=== PATIENT | female | born 1960 | race Two or more races ===

== ENCOUNTER 2024-08-02 09:08 | Inpatient (IN) | payer OTHER ==
[~2024-08-02] VITALS: Ht 152.4 cm; Wt 53.1 kg
[~2024-08-02 09:08] MED LIST: ACID REDUCER20 M1 PO; BIOTIN1 M1 PO; GABAPENTIN100 MG; NOXIFOL-D32500 UNIT PO; ORAPRED ODT15 MG PO; SYNTHROID75 MCG PO; TOPROL XL50 M1 PO; ZOLPIDEM TARTRA10 MG PO
[2024-08-02 09:14] LABS: HEMATOCRIT 27.1 % (36.0-45.00); MEAN CELL VOLUME 90.4 fL (80.00-100.00); MEAN CORPUSCULAR HEMOGLOBIN 29.6 pg (27.00-32.0); MEAN CORPUSCULAR HGB CONC 32.7 g/dl (32.0-36.0); RED CELL DISTRIBUTION WIDTH 15.4 % (11.5-14.5)
[2024-08-02 09:16] LABS: HEMOGLOBIN 8.9 g/dL (12.0-15.00); PLATELET COUNT 76 K/uL (150-450)
[2024-08-02 09:23] LABS: INR 1.12; PARTIAL THROMBOPLASTIN TIME 27.9 SECONDS (22.0-34.0); PROTHROMBIN TIME 12.1 SECONDS (9.0-11.5)
[2024-08-02 09:44] LABS: URINE APPEARANCE Clear; URINE BILIRRUBIN Negative (NEGATIVE); URINE BLOOD Negative; URINE COLOR Yellow; URINE GLUCOSE Negative (NEGATIVE); URINE KETONE Negative (NEGATIVE); URINE LEUKOCYTE Negative; URINE NITRATE Negative; URINE PROTEIN Negative (NEGATIVE)
[2024-08-02 09:48] LABS: URINE BACTERIA 36.6 uL (0.0-1933); URINE WBC 2.2 uL (0.0-23.2)
[2024-08-02 09:59] LABS: URINE RBC 0.1 uL (0.0-20.8)
[2024-08-02 10:15] LABS: BILIRUBIN TOTAL 0.83 mg/dL (0.3-1.2); CALCIUM 8.7 mg/dL (8.5-10.1); CREATININE SERUM 0.72 mg/dL (0.55-1.02); GFR 82.35; GLOBULINA 5.1 G/DL (2.4-3.5); POTASSIUM 4.03 mEq/L (3.5-5.1); TOTAL PROTEIN 8.1 gm/dL (6.4-8.2)
[2024-08-07] MEDS ORDERED: 0.9 % SODIUM CHLORIDE 1,000 ML IV SCH (10:45)
[2024-08-07] MEDS ORDERED: ENALAPRILAT DIHYDRATE 1.25 MG/ML VIAL IV PRN (10:45)
[2024-08-07] MEDS ORDERED: FUROsemide 20 MG/2 ML VIAL IV SCH (10:45)
[2024-08-07] MEDS ORDERED: PREDNISONE 10 MG TABLET PO SCH (11:40)
[2024-08-07] MEDS ORDERED: GABAPENTIN 100 MG CAPSULE PO SCH (11:42)
[2024-08-07] MEDS ORDERED: METOPROLOL SUCCINATE 50 MG TAB.SR.24H PO SCH (11:45)
[2024-08-07] MEDS ORDERED: PANTOPRAZOLE SODIUM 40 MG/VIAL VIAL IV SCH (11:46)
[2024-08-07 13:00] VITALS: BP 170/90; O2SAT 100
[2024-08-07 14:39] LABS: COL ADP 90 SECONDS (56-102); COL EPI 94 SECONDS (82-175)
[2024-08-07] MEDS ORDERED: ZOLPIDEM TARTRATE 10 MG TABLET PO SCH (21:00)
[2024-08-07] MEDS ORDERED: GABAPENTIN 300 MG CAPSULE PO SCH (21:00)
[2024-08-08 00:45] VITALS: BP 145/80; O2SAT 100
[2024-08-08 05:30] VITALS: BP 171/82; O2SAT 100
[2024-08-08] MEDS ORDERED: LEVOTHYROXINE SODIUM 75 MCG TABLET PO SCH (06:00)
[2024-08-08] MEDS ORDERED: LABETALOL HCL 20MG/4ML SYRINGE IV STA (06:14)
[2024-08-08] MEDS ORDERED: AMLODIPINE BESYLATE 5 MG TABLET PO SCH (06:15)
[2024-08-08] MEDS ORDERED: LABETALOL HCL 100 MG/20 ML ML ONE (06:15)
[2024-08-08 07:29] LABS: INR 1.23; PARTIAL THROMBOPLASTIN TIME 29.3 SECONDS (22.0-34.0); PROTHROMBIN TIME 13.2 SECONDS (9.0-11.5)
[2024-08-08 08:00] VITALS: BP 148/68; O2SAT 97
[2024-08-08] MEDS ORDERED: POLYETHYLENE GLYCOL 3350 238 GM POWDER PO NR (14:00)
[2024-08-08 16:00] VITALS: BP 160/82; O2SAT 96
[2024-08-08] MEDS ORDERED: BISACODYL 5 MG TABLET.EC PO SCH (21:00)
[2024-08-09] VITALS: BP 156/75; O2SAT 98
[2024-08-09 02:54] VITALS: BP 169/87
[2024-08-09 03:30] VITALS: BP 159/67
[2024-08-09] MEDS ORDERED: PHYTONADIONE 10 MG/ML AMPUL IV ONE (05:00)
[2024-08-09] MEDS ORDERED: NA PHOS,M-B/NA PHOS,DI-BA 1 BOTTLE ENEMA RECTAL SCH (05:00)
[2024-08-09] MEDS ORDERED: HYDROCORTISONE SODIUM SUCC/PF 100 MG VIAL IV NR (06:00)
[2024-08-09 08:00] VITALS: BP 155/80; O2SAT 100
[2024-08-09 10:47] LABS: HEMATOCRIT 34.8 % (36.0-45.00); HEMOGLOBIN 11.7 g/dL (12.0-15.00); MEAN CELL VOLUME 85.8 fL (80.00-100.00); MEAN CORPUSCULAR HEMOGLOBIN 28.9 pg (27.00-32.0); MEAN CORPUSCULAR HGB CONC 33.6 g/dl (32.0-36.0); RED BLOOD COUNT 4.06 M/uL (4.00-6.00); RED CELL DISTRIBUTION WIDTH 17.6 % (11.5-14.5)
[2024-08-09 10:51] LABS: PLATELET COUNT 66 K/uL (150-450)
[2024-08-09] MEDS ORDERED: hydrALAZINE HCL 20 MG VIAL ONE (13:26)
[2024-08-09] MEDS ORDERED: POVIDONE-IODINE 118 ML BOTT TOP ONE (13:46)
[2024-08-09] MEDS ORDERED: BUPIVACAINE HCL/MPF 0.5% 30ML VIAL ONE (13:46)
[2024-08-09] MEDS ORDERED: HEMOSTATIC MATRIX 1 KIT KIT TOP ONE (13:47)
[2024-08-09] MEDS ORDERED: LIDOCAINE HCL 1%/EPINEPHRINE 20ML VIAL IJ ONE (13:47)
[2024-08-09] MEDS ORDERED: DIBUCAINE 30 GM TUBE ONE (13:48)
[2024-08-09] MEDS ORDERED: MORPHINE SULFATE 4 MG/ML CARTRIDGE IV PRN (14:30)
[2024-08-09] MEDS ORDERED: OxyCODONE HCL 5 MG TABLET (ROXICODONE) PO PRN (14:30)
[2024-08-09] MEDS ORDERED: 0.9 % SODIUM CHLORIDE 1,000 ML IV SCH (14:30)
[2024-08-09] MEDS ORDERED: ONDANSETRON HCL 2 MG/ML VIAL IV PRN (14:30)
[2024-08-09] MEDS ORDERED: DEXTROSE 50 % IN WATER 0.5 G/ML VIAL IV PRN (14:30)
[2024-08-09] MEDS ORDERED: MORPHINE SULFATE 4 MG/ML VIAL IV ONE ×2 (16:20→17:50)
[2024-08-09] MEDS ORDERED: GABAPENTIN 300 MG CAPSULE PO SCH (17:00)
[2024-08-09] MEDS ORDERED: POLYETHYLENE GLYCOL 3350 17 GM BLIST.PACK PO SCH (17:00)
[2024-08-09] MEDS ORDERED: HYOSCYAMINE SULFATE 0.125 MG TAB.SUBL SL SCH (17:00)
[2024-08-09 19:00] VITALS: BP 156/83; O2SAT 94
[2024-08-09 19:32] LABS: ALBUMIN 2.9 gm/dL (3.4-5.0); CREATININE SERUM 0.74 mg/dL (0.55-1.02); GFR 79.78; PHOSPHOROUS 3.6 mg/dL (2.5-4.9); POTASSIUM 3.37 mEq/L (3.5-5.1)
[2024-08-09 19:35] LABS: MEAN CELL VOLUME 86.3 fL (80.00-100.00); MEAN CORPUSCULAR HEMOGLOBIN 28.8 pg (27.00-32.0); MEAN CORPUSCULAR HGB CONC 33.4 g/dl (32.0-36.0); RED BLOOD COUNT 3.83 M/uL (4.00-6.00); RED CELL DISTRIBUTION WIDTH 17.7 % (11.5-14.5)
[2024-08-09 19:38] LABS: PLATELET COUNT 73 K/uL (150-450)
[2024-08-09 19:59] LABS: MAGNESIUM 1.2 mg/dL (1.8-2.4)
[2024-08-09] MEDS ORDERED: ACETAMINOPHEN 500 MG GEL..CAP PO SCH (20:00)
[2024-08-09] MEDS ORDERED: FAMOTIDINE/PF 20 MG/2 ML VIAL IV PUSH SCH (21:00)
[2024-08-09] MEDS ORDERED: CELECOXIB 200 MG CAPSULE PO SCH (21:00)
[2024-08-10 01:00] VITALS: BP 170/90; O2SAT 99
[2024-08-10] MEDS ORDERED: LABETALOL HCL 100 MG/20 ML ML IV STA (06:01)
[2024-08-10] MEDS ORDERED: HYDROCORTISONE SODIUM SUCC/PF 100 MG VIAL ONE (06:05)
[2024-08-10] MEDS ORDERED: LABETALOL HCL 100 MG/20 ML ML ONE (06:06)
[2024-08-10] MEDS ORDERED: HYDROCORTISONE SODIUM SUCC/PF 100 MG VIAL IV STA (06:09)
[2024-08-10 06:43] VITALS: BP 148/86; O2SAT 100
[2024-08-10 07:55] LABS: HEMATOCRIT 34.3 % (36.0-45.00); HEMOGLOBIN 11.3 g/dL (12.0-15.00); MEAN CELL VOLUME 86.6 fL (80.00-100.00); MEAN CORPUSCULAR HEMOGLOBIN 28.6 pg (27.00-32.0); RED BLOOD COUNT 3.96 M/uL (4.00-6.00)
[2024-08-10 07:57] LABS: PLATELET COUNT 87 K/uL (150-450)
[2024-08-10 08:23] LABS: ALBUMIN 2.9 gm/dL (3.4-5.0); CALCIUM 7.7 mg/dL (8.5-10.1); CREATININE SERUM 0.68 mg/dL (0.55-1.02); GFR 87.96; PHOSPHOROUS 2.6 mg/dL (2.5-4.9); POTASSIUM 3.02 mEq/L (3.5-5.1)
[2024-08-10 09:05] LABS: MAGNESIUM 1.1 mg/dL (1.8-2.4)
[2024-08-10 09:38] LABS: MANUAL PLATELET COUNT 98
[2024-08-10] MEDS ORDERED: MAGNESIUM SULFATE IN WATER 50 ML IV NR (10:00)
[2024-08-10] MEDS ORDERED: POTASSIUM CHLORIDE 20MEQ/100ML H2O PB IV NR (12:00)
[2024-08-10] MEDS ORDERED: HYDROCORTISONE SODIUM SUCC/PF 50 MG/ML ML IV SCH (12:00)
[2024-08-10] MEDS ORDERED: ENOXAPARIN SODIUM 40 MG/0.4 ML SYRINGE SUBCUTANEO SCH (17:00)
[2024-08-10 18:18] VITALS: BP 138/95; O2SAT 96
[2024-08-11 00:35] VITALS: BP 123/66; O2SAT 98
[2024-08-11] MEDS ORDERED: HYDROCORTISONE SODIUM SUCC/PF 100 MG VIAL IV SCH (05:00)
[2024-08-11 08:13] VITALS: BP 165/87; O2SAT 100
[2024-08-11] MEDS ORDERED: ENOXAPARIN SODIUM 40 MG/0.4 ML SYRINGE SUBCUTANEO SCH (09:00)
[2024-08-11] MEDS ORDERED: HYDROCORTISONE SODIUM SUCC/PF 50 MG/ML ML IV SCH (13:00)
== END 2024-08-11 11:48 | disposition home or self-care (01) | DRG 333 ==
LOC: ADM 09:30 → SURG 08-07 09:35 → CIR.AMB 08-09 09:30 → SURG 08-09 09:30 → EDSTATUS 08-09 09:30 → SURG 08-11 11:48
PROVIDERS: Surgery; ADMIT Internal Medicine Geriatric Medicine; ATTEND Internal Medicine Geriatric Medicine
PROC: 30233N1 Transfusion of Nonautologous Red Blood Cells into Peripheral Vein, Percutaneous Approach (ICD-10-PCS; 2024-08-08)
PROC: 0KXM0ZZ Transfer Perineum Muscle, Open Approach (ICD-10-PCS; 2024-08-09)
PROC: 0DBP4ZZ Excision of Rectum, Percutaneous Endoscopic Approach (ICD-10-PCS; principal; 2024-08-09 10:45)
DX: D12.8 Benign neoplasm of rectum (principal); D62 Acute posthemorrhagic anemia; K62.4 Stenosis of anus and rectum; A63.0 Anogenital (venereal) warts

== ENCOUNTER 2024-09-13 07:19 | Day surgery (SDC) | payer OTHER ==
[2024-09-12 15:55] LABS: INR 1.13; PARTIAL THROMBOPLASTIN TIME 27.9 SECONDS (22.0-34.0); PROTHROMBIN TIME 12.2 SECONDS (9.0-11.5)
[2024-09-13] MEDS ORDERED: CEFAZOLIN SODIUM 1,000 MG VIAL IV ONE (11:00)
[2024-09-13] MEDS ORDERED: LIDOCAINE HCL 1%/EPINEPHRINE 20ML VIAL IJ ONE (11:00)
[2024-09-13] MEDS ORDERED: TRAM1TAB98 PO (11:56)
== END 2024-09-13 14:35 | disposition home or self-care (01) ==
LOC: CIR.AMB 07:19
PROVIDERS: ATTEND Surgery
DX: C21.1 Malignant neoplasm of anal canal (principal); I10 Essential (primary) hypertension
CPT/HCPCS: 36561; C1751